=== PATIENT | female | born 2000 | race Two or more races ===

== ENCOUNTER 2018-04-10 06:28 | Inpatient (IN) | payer MEDICAID ==
[2018-04-10] MEDS ORDERED: Nalbuphine 20 MG/ML 1 ML Syringe IVPUSH PRN (07:15)
[2018-04-10] MEDS ORDERED: Sodium Chloride 0.9% 10 ML Syringe FLUSH PRN (07:15)
[2018-04-10] MEDS ORDERED: Oxytocin/Lactated Ringers 10 UNIT/1,000 ML BAG IV SCH (07:15)
--- NOTE | 2018-04-10 07:24 | PCM.LDHP ---
L&D History of Present Illness - General Date of Service: 04/10/18 Admit Problem/Dx: Patient Status Order with Admit Dx/Problem 04/10/18 07:15 Patient Status [ADT] Routine Admission Diagnosis/Problem Admission Diagnosis/Problem Intrauterine Source of Information: Patient History Limitations: Reports: No Limitations - History of Present Illness Introduction:: 17 year old at 39w5d here for induction of labor. PNC with myself late in after a few visits earlier in [place]. No complications other than sparse care. - Related Data Allergies/Adverse Reactions: Allergies Allergy/AdvReac Type Severity Reaction Status Date / Time Penicillins Allergy Hives Verified 03/26/18 16:27 Home Medications: Home Meds Pnv No.122/Iron/Folic Acid [ Multi Tablet] 1 each PO DAILY 03/26/18 [ History] H&P Review of Systems - Review of Systems: Review Of Systems: See Below General: Reports: No Symptoms HEENT: Reports: No Symptoms Pulmonary: Reports: No Symptoms Cardiovascular: Reports: No Symptoms Gastrointestinal: Reports: No Symptoms Genitourinary: Reports: No Symptoms Musculoskeletal: Reports: No Symptoms Skin: Reports: No Symptoms Psychiatric: Reports: No Symptoms Neurological: Reports: No Symptoms Hematologic/Lymphatic: Reports: No Symptoms Immunologic: Reports: No Symptoms L&D Exam - Exam Exam: See Below - OB Specific Movement: Active Heart Tones: Present Heart Rate (FHR) Variability: Moderate (6-25 bmp) Presentation: Vertex Estimated Weight: 3100 - Young Score Young Score Cervix Position: Midposition Young Score Consistency: Soft Young Score Effacement: 0-30% Young Score Dilation: 3-4 cm Young Score 's Station: -2 Young Score Total: 6 - Exam General: Alert, Oriented HEENT: PERRLA, Conjunctiva Clear, EACs Clear, EOMI, Hearing Intact, Mucosa Moist & [place], Nares Patent, Normal Nasal Septum, Posterior Pharynx Clear, TMs Clear Neck: Supple, Trachea Midline Lungs: Clear to Auscultation, Normal Respiratory Effort Cardiovascular: Regular Rate, Regular Rhythm GI/Abdominal Exam: Normal Bowel Sounds, Soft, Non-Tender, No Organomegaly, No Distention, No Abnormal Bruit, No Mass, Pelvis Stable Rectal Exam: Normal Exam, Normal Rectal Tone Genitourinary: Normal external exam, Normal bimanual exam, Normal speculum exam Back Exam: Normal Inspection, Full Range of Motion Extremities: Normal Inspection, Normal Range of Motion, Non-Tender, No Pedal Edema, Normal Capillary Refill Skin: Warm, Dry, Intact Neurological: Cranial Nerves Intact, Reflexes Equal Bilateral Psychiatric: Alert, Normal Affect, Normal Mood Problem List Initiated/Reviewed/Updated: Yes Orders Last 24hrs: Active Orders 24 hr Category Date Time Status Patient Status [ADT] Routine ADT 04/10/18 07:15 Ordered Activity as Tolerated [RC] PFP Care 04/10/18 07:15 Ordered Communication Order [RC] ASDIRECTED Care 04/10/18 07:15 Ordered Heart Tones [RC] ASDIRECTED Care 04/10/18 07:15 Ordered Non Stress Test [RC] PER UNIT ROUTINE Care 04/10/18 07:15 Ordered Notify Provider [RC] PFP Care 04/10/18 07:15 Ordered Notify Provider [RC] PRN Care 04/10/18 07:15 Ordered Peripheral IV Care [RC] . DIRECTED Care 04/10/18 07:15 Ordered Vital Signs [RC] PER UNIT ROUTINE Care 04/10/18 07:15 Ordered CBC WITH AUTO DIFF [HEME] AM Lab 04/11/18 05:11 Ordered RAPID PLASMA REAGIN,RPR [CHEM] Routine Lab 04/10/18 07:15 Ordered TYPE AND SCREEN [BBK] Urgent Lab 04/10/18 07:15 Ordered Lactated Ringers [Ringers, Lactated] 1,000 ml Med 04/10/18 07:15 Ordered IV ASDIRECTED Nalbuphine [Nubain] Med 04/10/18 07:15 Ordered 10 mg IVPUSH Q2H PRN Oxytocin/Lactated Ringers [Pitocin in LR 10 Units/1,000 Med 04/10/18 07:15 Ordered ML] 10 unit in 1,000 ml IV TITRATE Sodium Chloride 0.9% [Saline Flush] Med 04/10/18 07:15 Ordered 10 ml FLUSH ASDIRECTED PRN Electronic Heart Tones Ext w TOCO [WOMSER] Oth 04/10/18 07:15 Ordered Routine Electronic Heart Tones Internal [WOMSER] Per Unit Oth 04/10/18 07:15 Ordered Routine Peripheral IV Insertion Adult [OM.PC] Routine Oth 04/10/18 07:15 Ordered Resuscitation Status Routine Resus Stat 04/10/18 07:15 Ordered Assessment/Plan Comment:: Term . Pitocin AROM prn
[2018-04-10] MEDS ORDERED: diphenhydrAMINE 50 MG/ML SDV IVPUSH PRN (10:30)
[2018-04-10] MEDS ORDERED: fentaNYL 100 MCG/2 ML SDV EPIDUR PRN (10:30)
[2018-04-10] MEDS ORDERED: Bupivacaine/fentaNYL/NS 100 ML Bag EPIDUR SCH (10:30)
[2018-04-10] MEDS ORDERED: ePHEDrine 50 MG/ML SDV IVPUSH PRN (10:30)
[2018-04-10] MEDS ORDERED: Ondansetron 4 MG/2 ML SDV IVPUSH PRN (10:30)
--- NOTE | 2018-04-10 10:30 | PCM.PREANE ---
Preanesthetic Assessment - Procedure Proposed Procedure: STEFAN - Anesthesia/Transfusion/Family Hx Anesthesia History: No Prior Anesthesia Family History of Anesthesia Reaction: No Transfusion History: No Prior Transfusion(s) - Review of Systems General: No Symptoms Pulmonary: No Symptoms Cardiovascular: No Symptoms Gastrointestinal: No Symptoms Neurological: No Symptoms Other: Reports: None - Physical Assessment NPO Status Date: 04/10/18 NPO Status Time: 08:00 O2 Sat by Pulse Oximetry: 100 Respiratory Rate: 16 Vital Signs: Last Vital Signs Temp 36.9 C 04/10/18 07:29 Pulse 88 04/10/18 07:29 Resp 16 04/10/18 07:29 BP 126/80 04/10/18 07:29 Pulse Ox 100 04/10/18 07:29 Height: 1.6 m Weight: 73.301 kg ASA Class: 2 Mental Status: Alert & Oriented x3 Airway Class: Mallampati = 1 Dentition: Reports: Normal Dentition Thyro-Mental Finger Breadths: 3 Mouth Opening Finger Breadths: 3 ROM/Head Extension: Full Lungs: Clear to Auscultation, Normal Respiratory Effort Cardiovascular: Regular Rate, Regular Rhythm - Lab Values: Laboratory Last Values WBC 8.30 K/mm3 (3.98-10.04) 04/10/18 10:15 RBC 3.45 M/mm3 (3.98-5.22) L 04/10/18 10:15 Hgb 9.6 gm/L (11.2-15.7) L 04/10/18 10:15 Hct 30.6 % (34.1-44.9) L 04/10/18 10:15 MCV 88.7 fl (79.4-94.8) 04/10/18 10:15 MCH 27.8 pg (25.6-32.2) 04/10/18 10:15 MCHC 31.4 g/dl (32.2-35.5) L 04/10/18 10:15 RDW Std Deviation 44.3 fL (36.4-46.3) 04/10/18 10:15 Plt Count 282 K/mm3 (182-369) 04/10/18 10:15 MPV 11.5 fl (9.4-12.3) 04/10/18 10:15 Blood Type O POSITIVE 04/10/18 07:45 Gel Antibody Screen Negative 04/10/18 07:45 - Allergies Allergies/Adverse Reactions: Allergies Allergy/AdvReac Type Severity Reaction Status Date / Time Penicillins Allergy Hives Verified 04/10/18 08:58 - Blood Blood Available: No Product(s) Available: None - Anesthesia Plan Pre-Op Medication Ordered: None - Acknowledgements Anesthesia Type Planned: Epidural Pt an Appropriate Candidate for the Planned Anesthesia: Yes Alternatives and Risks of Anesthesia Discussed w Pt/Guardian: Yes Pt/Guardian Understands and Agrees with Anesthesia Plan: Yes PreAnesthesia Questionnaire - Past Health History Medical/Surgical History: Denies Medical/Surgical History Hematologic History: Reports: Anemia - SUBSTANCE USE Smoking Status *Q: Never Smoker Second Hand Smoke Exposure: No Recreational Drug Use History: No - HOME MEDS Home Medications: Home Meds Pnv No.122/Iron/Folic Acid [ Multi Tablet] 1 each PO DAILY 03/26/18 [ History] - CURRENT (IN HOUSE) MEDS Current Meds: Current Medications Diphtheria/Tetanus/Acell Pertussis (Adacel) 0.5 ml IM .ONCE ONE Stop: 04/11/18 10:01 Lactated Ringer's (Ringers, Lactated) 1,000 mls @ 100 mls/hr IV ASDIRECTED PARRISH Oxytocin/Lactated Ringer's (Pitocin In Lr 10 Units/1,000 Ml) 10 unit in 1,000 mls @ 12 mls/hr IV TITRATE PARRISH; Protocol Nalbuphine HCl (Nubain) 10 mg IVPUSH Q2H PRN PRN Reason: pain Sodium Chloride (Saline Flush) 10 ml FLUSH ASDIRECTED PRN PRN Reason: Keep Vein Open
[2018-04-10] MEDS: Lactated Ringers 1,000 ML IV SCH ×5 (12:49→18:22)
[2018-04-10] MEDS ORDERED: Sodium Chloride 0.9% 1,000 ML ONE (16:59)
[2018-04-10] MEDS ORDERED: Sodium Chloride 0.9% 1,000 ML IV SCH (18:45)
--- NOTE | 2018-04-10 21:08 | PCM.DEL ---
L & D Note - General Info Date of Service: 04/10/18 - Delivery Note Labor: Induced by ARM, Induced by Oxytocin Delivery Outcome: Livebirth Infant Delivery Method: Spontaneous Vaginal Delivery-Single Presentation: Vertex Episiotomy Type: None Laceration: 2nd Degree Suture size: 3-0 Placenta: Intact, Spontaneous Cord: 3 Vessels Score 1 min: 8 Score 5 min: 9 - General Info Date of Service: 04/10/18 - Patient Data Vitals - Most Recent: Last Vital Signs Temp 36.9 C 04/10/18 07:29 Pulse 88 04/10/18 07:29 Resp 16 04/10/18 10:30 BP 126/80 04/10/18 07:29 Pulse Ox 100 04/10/18 10:30 Weight - Most Recent: 73.301 kg I&O - Last 24 Hours: Intake & Output 04/10/18 04/10/18 04/10/18 06:59 14:59 22:59 Intake Total 1999 1120 Balance 1999 1120 Lab Results Last 24 Hours: Laboratory Results - last 24 hr 04/10/18 04/10/18 04/10/18 Range/Units 07:45 07:45 10:15 WBC 8.30 (3.98-10.04) K/mm3 RBC 3.45 L (3.98-5.22) M/mm3 Hgb 9.6 L (11.2-15.7) gm/L Hct 30.6 L (34.1-44.9) % MCV 88.7 (79.4-94.8) fl MCH 27.8 (25.6-32.2) pg MCHC 31.4 L (32.2-35.5) g/dl RDW Std Deviation 44.3 (36.4-46.3) fL Plt Count 282 (182-369) K/mm3 MPV 11.5 (9.4-12.3) fl RPR Non-reactive (NONREACTIVE) Blood Type O POSITIVE Gel Antibody Screen Negative Med Orders - Current: Current Medications Diphenhydramine HCl (Benadryl) 25 mg IVPUSH Q6H PRN PRN Reason: Pruritis Diphtheria/Tetanus/Acell Pertussis (Adacel) 0.5 ml IM .ONCE ONE Stop: 04/11/18 10:01 Ephedrine Sulfate (Ephedrine Sulfate) 5 mg IVPUSH ASDIRECTED PRN PRN Reason: Hypotension Fentanyl (Sublimaze) 100 mcg EPIDUR Q3H PRN PRN Reason: Pain Last Admin: 04/10/18 13:20 Dose: 100 mcg Fentanyl/Bupivacaine HCl (Fentanyl/Bupivacaine/Ns 2 Mcg-0.125% 100 Ml) 100 ml EPIDUR ASDIRECTED PARRISH Last Admin: 04/10/18 13:20 Dose: 100 ml Lactated Ringer's (Ringers, Lactated) 1,000 mls @ 100 mls/hr IV ASDIRECTED PARRISH Last Admin: 04/10/18 18:22 Dose: 100 mls/hr Oxytocin/Lactated Ringer's (Pitocin In Lr 10 Units/1,000 Ml) 10 unit in 1,000 mls @ 12 mls/hr IV TITRATE PARRISH; Protocol Last Titration: 04/10/18 19:29 Dose: 1 munits/min, 6 mls/hr Sodium Chloride (Normal Saline) 1,000 mls @ 300 mls/hr IV ASDIRECTED PARRISH Nalbuphine HCl (Nubain) 10 mg IVPUSH Q2H PRN PRN Reason: pain Ondansetron HCl (Zofran) 4 mg IVPUSH ONETIME PRN PRN Reason: Nausea/Vomiting Sodium Chloride (Saline Flush) 10 ml FLUSH ASDIRECTED PRN PRN Reason: Keep Vein Open Discontinued Medications Sodium Chloride (Normal Saline) Confirm Administered Dose 1,000 mls @ as directed .ROUTE .STK-MED ONE Stop: 04/10/18 17:00 Last Admin: 04/10/18 18:45 Dose: Not Given - Problem List Review Problem List Initiated/Reviewed/Updated: Yes - My Orders Last 24 Hours: My Active Orders 04/10/18 07:15 Patient Status [ADT] Routine Activity as Tolerated [RC] PFP Communication Order [RC] ASDIRECTED Notify Provider [RC] PFP Notify Provider [RC] PRN Lactated Ringers [Ringers, Lactated] 1,000 ml IV ASDIRECTED Nalbuphine [Nubain] 10 mg IVPUSH Q2H PRN Oxytocin/Lactated Ringers [Pitocin in LR 10 Units/1,000 ML] 10 unit in 1,000 ml IV TITRATE Sodium Chloride 0.9% [Saline Flush] 10 ml FLUSH ASDIRECTED PRN Electronic Heart Tones Ext w TOCO [WOMSER] Routine Electronic Heart Tones Internal [WOMSER] Per Unit Routine Peripheral IV Insertion Adult [OM.PC] Routine Resuscitation Status Routine 04/10/18 07:45 PATIENT RETYPE [BBK] Urgent RUBELLA ANTIBODY IGG [CHEM] Urgent TYPE AND SCREEN [BBK] Urgent 04/10/18 09:26 Vaccines to be Administered [RC] PER UNIT ROUTINE 04/10/18 18:45 Sodium Chloride 0.9% [Normal Saline] 1,000 ml IV ASDIRECTED 04/10/18 21:02 Patient Status Manage Transfer [TRANSFER] Routine 04/10/18 Lunch Regular Diet [DIET] 04/11/18 05:11 CBC WITH AUTO DIFF [HEME] AM 04/11/18 10:00 Diphth,Pertuss(Acell),Tet Vac [Adacel] 0.5 ml IM .ONCE ONE - Plan Plan:: Term . Pitocin AROM prn
[2018-04-10] MEDS ORDERED: Bupivacaine 0.25% 10 ML SDV ONE (22:00)
[2018-04-10] MEDS ORDERED: Docusate Sodium 100 MG Cap PO PRN (22:10)
[2018-04-10] MEDS ORDERED: Lanolin 100% Cream 7 GM Tube TOP PRN (22:10)
[2018-04-10] MEDS ORDERED: Witch Hazel Medicated Pads 100/Jar TOP PRN (22:10)
[2018-04-10] MEDS ORDERED: Acetaminophen 325 MG Tab PO PRN (22:10)
[2018-04-10] MEDS ORDERED: Benzocaine/Menthol 20%-0.5% Spray 56 GM Canister TOP PRN (22:10)
[2018-04-10] MEDS: Ibuprofen 600 MG Tab PO PRN (23:33)
--- NOTE | 2018-04-11 06:48 | PCM.PNPP ---
- General Info Date of Service: 04/11/18 Functional Status: Reports: Pain Controlled, Tolerating Diet, Ambulating, Urinating - Review of Systems General: Reports: No Symptoms Pulmonary: Reports: No Symptoms Cardiovascular: Reports: No Symptoms Gastrointestinal: Reports: No Symptoms Genitourinary: Reports: No Symptoms Musculoskeletal: Reports: No Symptoms - Patient Data Vital Signs - Most Recent: Last Vital Signs Temp 36.6 C 04/11/18 03:43 Pulse 91 04/11/18 03:43 Resp 16 04/11/18 03:43 BP 129/72 04/11/18 03:43 Pulse Ox 100 04/11/18 03:43 Weight - Most Recent: 73.301 kg I&O - Last 24 Hours: Intake & Output 04/10/18 04/10/18 04/11/18 14:59 22:59 06:59 Intake Total 1999 1120 Balance 1999 1119 Lab Results - Last 24 Hours: Laboratory Results - last 24 hr 04/10/18 04/10/18 04/10/18 Range/Units 07:45 07:45 10:15 WBC 8.30 (3.98-10.04) K/mm3 RBC 3.45 L (3.98-5.22) M/mm3 Hgb 9.6 L (11.2-15.7) gm/L Hct 30.6 L (34.1-44.9) % MCV 88.7 (79.4-94.8) fl MCH 27.8 (25.6-32.2) pg MCHC 31.4 L (32.2-35.5) g/dl RDW Std Deviation 44.3 (36.4-46.3) fL Plt Count 282 (182-369) K/mm3 MPV 11.5 (9.4-12.3) fl RPR Non-reactive (NONREACTIVE) Blood Type O POSITIVE Gel Antibody Screen Negative Med Orders - Current: Current Medications Acetaminophen (Tylenol) 650 mg PO Q6H PRN PRN Reason: mild pain or fever Last Admin: 04/11/18 03:47 Dose: 650 mg Benzocaine/Menthol (Dermoplast Pain Relief [place]) 0 gm TOP ASDIRECTED PRN PRN Reason: Perineal Comfort Measure Last Admin: 04/10/18 22:23 Dose: 1 can Docusate Sodium (Colace) 100 mg PO BID PRN PRN Reason: Constipation Emollient Ointment (Lansinoh Hpa) 0 gm TOP ASDIRECTED PRN PRN Reason: Sore Nipples Ibuprofen (Motrin) 600 mg PO Q6H PRN PRN Reason: Mild pain or fever Last Admin: 04/10/18 23:33 Dose: 600 mg Witch Cindy (Tucks) 1 pad TOP ASDIRECTED PRN PRN Reason: Hemorrhoid pain Last Admin: 04/10/18 22:23 Dose: 1 can Discontinued Medications Diphenhydramine HCl (Benadryl) 25 mg IVPUSH Q6H PRN PRN Reason: Pruritis Diphtheria/Tetanus/Acell Pertussis (Adacel) 0.5 ml IM .ONCE ONE Stop: 04/11/18 10:01 Ephedrine Sulfate (Ephedrine Sulfate) 5 mg IVPUSH ASDIRECTED PRN PRN Reason: Hypotension Fentanyl (Sublimaze) 100 mcg EPIDUR Q3H PRN PRN Reason: Pain Last Admin: 04/10/18 13:20 Dose: 100 mcg Fentanyl/Bupivacaine HCl (Fentanyl/Bupivacaine/Ns 2 Mcg-0.125% 100 Ml) 100 ml EPIDUR ASDIRECTED PARRISH Last Admin: 04/10/18 13:20 Dose: 100 ml Lactated Ringer's (Ringers, Lactated) 1,000 mls @ 100 mls/hr IV ASDIRECTED PARRISH Last Admin: 04/10/18 18:22 Dose: 100 mls/hr Oxytocin/Lactated Ringer's (Pitocin In Lr 10 Units/1,000 Ml) 10 unit in 1,000 mls @ 12 mls/hr IV TITRATE PARRISH; Protocol Last Titration: 04/10/18 22:08 Dose: 250 mls/hr Sodium Chloride (Normal Saline) Confirm Administered Dose 1,000 mls @ as directed .ROUTE .STK-MED ONE Stop: 04/10/18 17:00 Last Admin: 04/10/18 18:45 Dose: Not Given Sodium Chloride (Normal Saline) 1,000 mls @ 300 mls/hr IV ASDIRECTED PARRISH Nalbuphine HCl (Nubain) 10 mg IVPUSH Q2H PRN PRN Reason: pain Ondansetron HCl (Zofran) 4 mg IVPUSH ONETIME PRN PRN Reason: Nausea/Vomiting Sodium Chloride (Saline Flush) 10 ml FLUSH ASDIRECTED PRN PRN Reason: Keep Vein Open - Infant Interaction Infant Disposition, : in Room with Family Infant Interaction: Holding Infant Feeding: Bottle Fed Support Person: Mother, Sister, Significant Other - Recovery Exam Fundal Tone: Firm Fundal Level: 1 Fingerbreadths Below Umbilicus Fundal Placement: Midline Lochia Amount: Small Lochia Color: Rubra/Red Bladder Status: Voiding Urinary Elimination: Voided - Exam General: Alert, Oriented, Cooperative GI/Abdominal Exam: Soft, Non-Tender Extremities: Normal Inspection Skin: Warm, Dry, Intact - Problem List & Annotations (1) Vaginal delivery SNOMED Code(s): 213920533 Code(s): O80 - ENCOUNTER FOR FULL-TERM UNCOMPLICATED DELIVERY Status: Acute Current Visit: Yes - Problem List Review Problem List Initiated/Reviewed/Updated: Yes - Assessment Assessment:: PPD#1 from - Plan Plan:: Routine cares Bottle feeding Discharge home tomorrow
--- NOTE | 2018-04-11 09:38 | PCM48HPAN ---
Post Anesthesia Note - EVALUATION WITHIN 48HRS OF ANESTHETIC Vital Signs in Normal Range: Yes Patient Participated in Evaluation: Yes Respiratory Function Stable: Yes Airway Patent: Yes Cardiovascular Function Stable: Yes Hydration Status Stable: Yes Pain Control Satisfactory: Yes Nausea and Vomiting Control Satisfactory: Yes Mental Status Recovered: Yes Pulse Rate: 91 Resp Rate: 16 Temperature: 97.9 F Blood Pressure: 129/72 - COMMENTS/OBSERVATIONS Free Text/Narrative:: Patient is on postoperative day 1. Stated understanding about possible backaches following epidural anesthesia. Denies having some any soreness at this time. Explanation given about importance of avoiding back straining. Denies any headache, nausea or lightheadedness at this time. Comfortable now, ambulating, no difficulty urinating.
[2018-04-11] MEDS ORDERED: Diphtheria,Pertussis(Acell),Tetanus Vaccine 0.5 ML SDV IM ONE (10:00)
[2018-04-11] MEDS: Ibuprofen 600 MG Tab PO PRN (20:48)
--- NOTE | 2018-04-12 06:27 | PCM.DCSUM1 ---
Discharge Summary - Hospital Course Free Text/Narrative:: Admitted for induction of labor. AROM. Pitocin. Uncomplicated . Diagnosis: Stroke: No - Discharge Data Discharge Date: 04/12/18 Discharge Disposition: Home, Self-Care 01 Condition: Good - Patient Instructions Diet: Usual Diet as Tolerated Activity: No Strenuous Activities Activity, Other: pelvic rest Driving: May Drive Today Notify Provider of: Fever, Increased Pain, Swelling and Redness, Drainage, Nausea and/or Vomiting - Discharge Plan *PRESCRIPTION DRUG MONITORING PROGRAM REVIEWED*: No *COPY OF PRESCRIPTION DRUG MONITORING REPORT IN PATIENT ADWOA: No Home Medications: Home Meds Pnv No.122/Iron/Folic Acid [ Multi Tablet] 1 each PO DAILY 03/26/18 [ History] Patient Handouts: Home Care Instructions for Mom, Tips for a Good Latch - Discharge Summary/Plan Comment DC Time >30 min.: No - General Info Date of Service: 04/12/18 Functional Status: Reports: Pain Controlled - Review of Systems General: Reports: No Symptoms HEENT: Reports: No Symptoms Pulmonary: Reports: No Symptoms Cardiovascular: Reports: No Symptoms Gastrointestinal: Reports: No Symptoms Genitourinary: Reports: No Symptoms Musculoskeletal: Reports: No Symptoms Skin: Reports: No Symptoms Neurological: Reports: No Symptoms Psychiatric: Reports: No Symptoms - Patient Data Vitals - Most Recent: Last Vital Signs Temp 36.6 C 04/12/18 03:11 Pulse 84 04/12/18 03:11 Resp 16 04/12/18 03:11 BP 92/45 L 04/12/18 03:11 Pulse Ox 98 04/12/18 03:11 Weight - Most Recent: 73.301 kg I&O - Last 24 hours: Intake & Output 04/11/18 04/11/18 04/12/18 14:59 22:59 06:59 Intake Total 320 Balance 320 Lab Results - Last 24 hrs: Laboratory Results - last 24 hr 04/10/18 Range/Units 07:45 Rubella IgG Antibody Reactive (pos) (REACTIVE) Med Orders - Current: Current Medications Acetaminophen (Tylenol) 650 mg PO Q6H PRN PRN Reason: mild pain or fever Last Admin: 04/11/18 03:47 Dose: 650 mg Benzocaine/Menthol (Dermoplast Pain Relief [place]) 0 gm TOP ASDIRECTED PRN PRN Reason: Perineal Comfort Measure Last Admin: 04/10/18 22:23 Dose: 1 can Docusate Sodium (Colace) 100 mg PO BID PRN PRN Reason: Constipation Emollient Ointment (Lansinoh Hpa) 0 gm TOP ASDIRECTED PRN PRN Reason: Sore Nipples Ibuprofen (Motrin) 600 mg PO Q6H PRN PRN Reason: Mild pain or fever Last Admin: 04/11/18 20:48 Dose: 600 mg Witch Cindy (Tucks) 1 pad TOP ASDIRECTED PRN PRN Reason: Hemorrhoid pain Last Admin: 04/10/18 22:23 Dose: 1 can Discontinued Medications Bupivacaine HCl (Sensorcaine-Mpf 0.25%) 10 ml .ROUTE .[facility] ONE Stop: 04/10/18 22:01 Diphenhydramine HCl (Benadryl) 25 mg IVPUSH Q6H PRN PRN Reason: Pruritis Diphtheria/Tetanus/Acell Pertussis (Adacel) 0.5 ml IM .ONCE ONE Stop: 04/11/18 10:01 Last Admin: 04/11/18 20:37 Dose: 0.5 ml Ephedrine Sulfate (Ephedrine Sulfate) 5 mg IVPUSH ASDIRECTED PRN PRN Reason: Hypotension Fentanyl (Sublimaze) 100 mcg EPIDUR Q3H PRN PRN Reason: Pain Last Admin: 04/10/18 13:20 Dose: 100 mcg Fentanyl/Bupivacaine HCl (Fentanyl/Bupivacaine/Ns 2 Mcg-0.125% 100 Ml) 100 ml EPIDUR ASDIRECTED PARRISH Last Admin: 04/10/18 13:20 Dose: 100 ml Lactated Ringer's (Ringers, Lactated) 1,000 mls @ 100 mls/hr IV ASDIRECTED PARRISH Last Admin: 04/10/18 18:22 Dose: 100 mls/hr Oxytocin/Lactated Ringer's (Pitocin In Lr 10 Units/1,000 Ml) 10 unit in 1,000 mls @ 12 mls/hr IV TITRATE PARRISH; Protocol Last Titration: 04/10/18 22:08 Dose: 250 mls/hr Sodium Chloride (Normal Saline) Confirm Administered Dose 1,000 mls @ as directed .ROUTE .[facility] ONE Stop: 04/10/18 17:00 Last Admin: 04/10/18 18:45 Dose: Not Given Sodium Chloride (Normal Saline) 1,000 mls @ 300 mls/hr IV ASDIRECTED PARRISH Lidocaine HCl (Xylocaine-Mpf 1%) 5 ml .ROUTE .STK-MED ONE Stop: 04/10/18 22:01 Nalbuphine HCl (Nubain) 10 mg IVPUSH Q2H PRN PRN Reason: pain Ondansetron HCl (Zofran) 4 mg IVPUSH ONETIME PRN PRN Reason: Nausea/Vomiting Sodium Chloride (Saline Flush) 10 ml FLUSH ASDIRECTED PRN PRN Reason: Keep Vein Open - Exam General: Reports: Alert, Oriented HEENT: Reports: Pupils Equal, Pupils Reactive, EOMI, Mucous Membr. Moist/[place] Neck: Reports: Supple Lungs: Reports: Normal Respiratory Effort Cardiovascular: Reports: Regular Rhythm GI/Abdominal Exam: Normal Bowel Sounds, Soft, Non-Tender, No Organomegaly, No Distention, No Abnormal Bruit, No Mass Rectal (Female) Exam: Normal Rectal Tone Back Exam: Reports: Normal Inspection, Full Range of Motion Extremities: Normal Inspection, Normal Range of Motion, Non-Tender, No Pedal Edema, Normal Capillary Refill Skin: Reports: Warm, Dry, Intact Wound/Incisions: Reports: Healing Well Neurological: Reports: No New Focal Deficit Psy/Mental Status: Reports: Alert, Normal Affect, Normal Mood
== END 2018-04-12 10:33 | disposition home or self-care (01) | DRG 775 ==
LOC: JD.OB 07:10 → OBSVTOIN 20:44 → JD.OB 20:44
PROVIDERS: ADMIT Obstetrics & Gynecology; ATTEND Obstetrics & Gynecology
PROC: 10E0XZZ Delivery of Products of Conception, External Approach (ICD-10-PCS; principal; 2018-04-10)
PROC: 10907ZC Drainage of Amniotic Fluid, Therapeutic from Products of Conception, Via Natural or Artificial Opening (ICD-10-PCS; principal; 2018-04-10)
PROC: 3E033VJ Introduction of Other Hormone into Peripheral Vein, Percutaneous Approach (ICD-10-PCS; principal; 2018-04-10)
PROC: 0KQM0ZZ Repair Perineum Muscle, Open Approach (ICD-10-PCS; principal; 2018-04-10)
PROC: 00HU33Z Insertion of Infusion Device into Spinal Canal, Percutaneous Approach (ICD-10-PCS; 2018-04-10)
PROC: 3E0R3BZ Introduction of Anesthetic Agent into Spinal Canal, Percutaneous Approach (ICD-10-PCS; 2018-04-10)
PROC: 3E0234Z Introduction of Serum, Toxoid and Vaccine into Muscle, Percutaneous Approach (ICD-10-PCS; 2018-04-11)
DX: O70.1 Second degree perineal laceration during delivery (principal); Z37.0 Single live birth; Z3A.39 39 weeks gestation of pregnancy; Z23 Encounter for immunization; Z88.0 Allergy status to penicillin
CPT/HCPCS: 01967; 36415; 51702; 59025; 59300; 59409; 85027; 86592; 86762; 86850; 86900; 86901; 90471; 90715; A9270-GY; J2590; J3010; J3490; J7120